=== PATIENT | female | born 1985 | race Caucasian/White ===

== ENCOUNTER 2018-08-03 22:30 | Emergency (ER) | payer BC ==
--- NOTE | 2018-08-03 22:51 | NUR ---
CALLED PT NAME IN WR X 3. NO ONE RESPONDED. WILL FOLLOW UP.
--- NOTE | 2018-08-03 23:34 | NUR ---
PER ADMITTING PT LEFT.
== END 2018-08-03 23:40 | disposition left against medical advice (07) ==
LOC: ER 22:35
DX: Z53.21 Procedure and treatment not carried out due to patient leaving prior to being seen by health care provider (principal)